=== PATIENT | male | born 1985 | race Caucasian/White ===

== ENCOUNTER 2019-04-22 05:31 | Emergency (ER) | payer OTHER ==
[2019-04-22 05:36] VITALS: BP 155/96; PULSE 76; RESP 18; TEMP 98
[2019-04-22] MEDS ORDERED: PROPARACAINE 0.5% OPHTH DROPS 15 ML BTL LEFT EYE STA (05:43)
[2019-04-22] MEDS ORDERED: ERYTHROMYCIN 5 MG/GM OPHTH OINT 3.5 GM TUBE RIGHT EYE STA (05:55)
--- NOTE | 2019-04-22 05:56 | ED ---
Eye Problem HPI - General Chief complaint: Eye Problems Stated complaint: FB in eye Time Seen by Provider: 04/22/19 05:42 Source: patient Mode of arrival: ambulatory Limitations: no limitations - History of Present Illness Initial comments: As previously healthy 34-year-old gentleman who woke this morning sensation there is a foreign body in his right eye. Patient reports he tried rinsing his eye out with water with no relief which prompted him to come to the ER for evaluation. Patient denies any injury. Patient denies any exposure to welding a bright light. chief complaint: eye pain -: minutes(s) Onset Description: sudden Location: right eye Place: home If Injury: none Eye Symptoms: foreign body sensation Severity: moderate Consistency: constant Associated Symptoms: none Treatments Prior to Arrival: none - Related Data Allergies Allergy/AdvReac Type Severity Reaction Status Date / Time No Known Allergies Allergy Verified 04/22/19 05:36 Review of Systems ROS Statement: Those systems with pertinent positive or pertinent negative responses have been documented in the HPI. ROS Other: All systems not noted in ROS Statement are negative. Past Medical History Past Medical History: No Reported History Past Surgical History: No Surgical Hx Reported Past Psychological History: No Psychological Hx Reported Smoking Status: Never smoker Past Alcohol Use History: None Reported Past Drug Use History: None Reported General Exam - General Exam Comments Initial Comments: Physical Exam GENERAL: Patient is well-developed and well-nourished. Patient is nontoxic and well- hydrated and is in no distress. HENT: Normocephalic, Atraumatic. EYES: PERRL, EOMI Staining of the right eye reveals a small punctate corneal abrasion at the 12 o'clock position over the pupil, this measures only personally 2 mm, Kade sign is negative The eyelids were everted no foreign body was identified PULMONARY: Unlabored respirations CARDIOVASCULAR: RRR ABDOMEN: Nondistended SKIN: Skin is clear with no lesions or rashes and otherwise unremarkable. : Deferred NEUROLOGIC: Patient is alert and oriented x3. Moving all extremities spontaneously MUSCULOSKELETAL: Normal extremities with adequate strength and full range of motion. No lower extremity swelling or edema. No calf tenderness. PSYCHIATRIC: Normal psychiatric evaluation. Limitations: no limitations Course Vital Signs 04/22/19 05:32 Temperature 98.0 F Pulse Rate 76 Respiratory 18 Rate Blood Pressure 155/96 O2 Sat by Pulse 99 Oximetry Medical Decision Making - Medical Decision Making The patient was seen and evaluated, history is obtained from the patient History and physical exam are concerning for corneal abrasion The patient complete resolution of symptoms after proparacaine was instilled into the eye Patient be discharged home with antibiotic drops, first dose given in the emergency department Disposition Clinical Impression: Corneal abrasion Disposition: HOME SELF-CARE Condition: Stable Instructions (If sedation given, give patient instructions): Eye Lubricant (Into the eye) Is patient prescribed a controlled substance at d/c from ED?: No Referrals: None,Stated [Primary Care Provider] - 1-2 days
[2019-04-22] MEDS ORDERED: POLYMYXIN B-TRIMETHOPRIM SULF (10,000-1) OPHTH DROPS 10 ML BTL RIGHT EYE STA (06:04)
== END 2019-04-22 06:14 | disposition home or self-care (01) ==
LOC: EC 05:31
DX: S05.01XA Injury of conjunctiva and corneal abrasion without foreign body, right eye, initial encounter (principal); X58.XXXA Exposure to other specified factors, initial encounter
CPT/HCPCS: 99283